=== PATIENT | male | born 1960 | race Caucasian/White ===

== ENCOUNTER 2019-07-19 05:34 | Outpatient (CLI) | payer OTHER ==
[~2019-07-19] VITALS: Ht 185 cm; Wt 131.8 kg
[2019-07-19] MEDS ORDERED: CITA20TA9 PO (14:00)
== END 2019-07-19 14:04 | disposition home or self-care (01) ==
LOC: PREOP 05:34
PROVIDERS: ATTEND Surgery
DX: Z01.818 Encounter for other preprocedural examination (principal)

== ENCOUNTER 2019-07-26 12:28 | Day surgery (SDC) | payer OTHER ==
[~2019-07-26] VITALS: Ht 185 cm; Wt 131.8 kg
[~2019-07-26 12:28] MED LIST: CITA20TA9 PO
[2019-07-26] MEDS ORDERED: LACTATED RINGERS 1,000 ML IV STA (12:36)
[2019-07-26] MEDS ORDERED: LACTATED RINGERS 1,000 ML IV ONE (12:38)
[2019-07-26 12:50] VITALS: BP 118/86
[2019-07-26] MEDS ORDERED: PROPOFOL INJECTION 50 ML IV ONE (12:58)
[2019-07-26] MEDS ORDERED: MIDAZOLAM 2 MG/2 ML (VERSED) VIAL ONE (12:58)
--- NOTE | 2019-07-26 13:12 | Progress Note-Pre Operative ---
Pre-Operative Progress Note H&P Reviewed The H&P was reviewed, patient examined and no changes noted. Date Seen by Provider: Jul 26, 2019 Time Seen by Provider: 13:11 Date H&P Reviewed: Jul 26, 2019 Time H&P Reviewed: 13:11 Pre-Operative Diagnosis: history of polyps, family hx colon cancer BHANU CHRIS DO Jul 26, 2019 13:12
[2019-07-26 13:35] VITALS: BP 132/86
[2019-07-26 13:40] VITALS: BP 134/67
[2019-07-26 13:45] VITALS: BP 123/60
--- NOTE | 2019-07-26 13:45 | Progress Note-Post Operative ---
Post-Operative Progess Note Surgeon (s)/Oil Rig Driller (s) Surgeon BHANU CHRIS DO Oil Rig Driller: na Pre-Operative Diagnosis history of polyps, family hx colon cancer Post-Operative Diagnosis diverticulosis Procedure & Operative Findings Date of Procedure 07/26/19 Procedure Performed/Findings colonoscopy Anesthesia Type per smoking tobacco packing machine hand Estimated Blood Loss Estimated blood loss (mL): none Specimens/Packing Specimens Removed na BHANU CHRIS DO Jul 26, 2019 13:45
--- NOTE | 2019-07-26 13:46 | Discharge Inst-Simple/Standard ---
Discharge Inst-Standard Patient Instructions/Follow Up Plan of Care/Instructions/FU: Repeat colonoscopy in 5 years, any issues before that be seen at that time. Activity as Tolerated: Yes Discharge Diet: Regular Diet (high fiber) BHANU CHRIS DO Jul 26, 2019 13:46
[2019-07-26 13:50] VITALS: BP 123/60
[2019-07-26 14:25] VITALS: BP 132/68
--- NOTE | 2019-07-26 15:54 | Anesthesia-General Post-Op ---
MAC Patient Condition Mental Status/LOC: Same as Preop Cardiovascular: Satisfactory Nausea/Vomiting: Absent Respiratory: Satisfactory Pain: Controlled Complications: Absent Post Op Complications Complications None Follow Up Care/Instructions Patient Instructions None needed. Anesthesiology Discharge Order Discharge Order Patient is doing well, no complaints, stable vital signs, no apparent adverse anesthesia problems. No complications reported per nursing. KONSTANTIN FLORES CRNA Jul 26, 2019 15:54
--- NOTE | 2019-07-26 21:07 | OPERATIVE REPORT ---
DATE OF SERVICE: 07/26/2019 PREOPERATIVE DIAGNOSES: History of polyps, family history of colon cancer. POSTOPERATIVE DIAGNOSIS: Diverticulosis. PROCEDURE: Colonoscopy. SURGEON: Bhanu Kramer DO ANESTHESIA: Per CERAMICS TECHNICIAN. ESTIMATED BLOOD LOSS: None. COMPLICATIONS: None. INDICATIONS: The patient is a 58-year-old male needing screening colonoscopy. He understands risks and benefits of procedure and wished to proceed with procedure. Consent was signed in the chart. DESCRIPTION OF PROCEDURE: The patient was taken to the endoscopy suite, placed in left lateral recumbent position. Timeout was performed. Digital rectal exam was performed. There were no palpable polyps, masses or ulcerations. Scope was inserted in the rectum, advanced all the way to cecum with minimal difficulty. Prep was adequate with irrigation and suction. Scope was then slowly retracted back. There were no polyps, masses or ulcerations within the cecum, ascending, transverse and descending colon. Into the sigmoid colon, moderate amount of diverticulosis present. No polyps, masses or ulcerations. Once in the rectum, scope was also retroflexed noting no other pathology. Scope was returned to its normal position, slowly withdrawn until completely removed. The patient tolerated procedure well without any complications, taken to recovery room in stable condition. RECOMMENDATIONS: The patient will need repeat colonoscopy in 5 years due to family history of colon cancer and because of history of polyps. If he has any issues before that, he should be reevaluated at that time. Job ID: [id number] DocumentID: [id number] Dictated Date: 07/26/2019 13:48:55 Switchboard Mechanic Date: 07/26/2019 21:06:19 Dictated By: BHANU KRAMER DO
== END 2019-07-26 14:40 ==
LOC: ENDO 12:28
PROVIDERS: ATTEND Surgery
DX: Z12.11 Encounter for screening for malignant neoplasm of colon (principal); K57.30 Diverticulosis of large intestine without perforation or abscess without bleeding; K42.9 Umbilical hernia without obstruction or gangrene; E66.9 Obesity, unspecified; Z68.38 Body mass index [BMI] 38.0-38.9, adult; Z90.49 Acquired absence of other specified parts of digestive tract; Z80.0 Family history of malignant neoplasm of digestive organs

== ENCOUNTER → 2019-11-10 | Outpatient (CLI) | payer OTHER | LOC: CARD 11:12 | PROVIDERS: ATTEND Internal Medicine | DX: I07.1 Rheumatic tricuspid insufficiency (principal); I51.7 Cardiomegaly; R79.89 Other specified abnormal findings of blood chemistry | CPT/HCPCS: 93306 ==

== ENCOUNTER 2019-12-08 11:46 | Outpatient (RCR) | payer OTHER ==
[2020-01-25] MEDS ORDERED: APIX5TAB PO (10:01)
[2020-01-25] MEDS ORDERED: ASCO500C17 PO (10:01)
[2020-01-25] MEDS ORDERED: AMIO200T4 PO (10:46)
== END 2020-03-07 | disposition home or self-care (01) ==
LOC: CARD 11:46
PROVIDERS: ATTEND Internal Medicine Cardiovascular Disease
DX: I48.0 Paroxysmal atrial fibrillation (principal); I49.3 Ventricular premature depolarization; E66.9 Obesity, unspecified

== ENCOUNTER → 2020-01-09 | Outpatient (CLI) | payer OTHER | LOC: LABNPT 07:09 | PROVIDERS: ATTEND Internal Medicine Cardiovascular Disease | DX: Z01.818 Encounter for other preprocedural examination (principal) ==

== ENCOUNTER → 2020-01-25 | Day surgery (SDC) | payer OTHER ==
[~2020-01-25] VITALS: Ht 185.4 cm; Wt 135.2 kg
[2020-01-25] VITALS (8 sets, daily range): BP systolic 113–148; BP diastolic 70–90
[~2020-01-25] MED LIST changes: +AMIO200T4 PO; +AMIODARONE FOR BOLUS 150 MG in D5W 100 ML IVPB 100 ML IV ONE; +APIX5TAB PO; +ASCO500C17 PO; +LIDOCAINE 2% VISCOUS 15 ML UDC ONE; +MIDAZOLAM 5 MG/5 ML (VERSED) VIAL ONE; +NS IV 1000 ML 1,000 ML IV SCH; +NS IV 1000 ML 1,000 ML ONE; +proPOfol 200 MG/20 ML (DIPRIVAN) VIAL IV ONE
--- OUTSIDE RECORDS SUMMARY | 2020-01-25 08:21 | XMS REPORT | Continuity of Care Document ---
Author Organization Unknown Address Unknown Phone Unavailable Allergies Active Description Code Type Severity Reaction Onset Reported/Identified Relationship to Patient Clinical Status Yes No Known Drug Allergies [id number] Drug Allergy Unknown N/A 07/19/2019 Medications There is no data. Problems Date Dx Coded Attending Type Code Diagnosis Diagnosed By 07/19/2019 BHANU CHRIS DO Ot Z01.818 ENCOUNTER FOR OTHER PREPROCEDURAL EXAMIN 07/21/2019 BHANU CHRIS DO Ot Z01.818 ENCOUNTER FOR OTHER PREPROCEDURAL EXAMIN 07/26/2019 BHANU CHRIS DO Ot E66. 9 OBESITY, UNSPECIFIED 07/26/2019 BHANU CHRIS DO Ot K42. 9 UMBILICAL HERNIA WITHOUT OBSTRUCTION OR 07/26/2019 BHANU CHRIS DO Ot K57. 30 DVRTCLOS OF LG INT W/O PERFORATION OR AB 07/26/2019 BHANU CHRIS DO Ot Z12. 11 ENCOUNTER FOR SCREENING FOR MALIGNANT NE 07/26/2019 BHANU CHRIS DO Ot Z68. 38 BODY MASS INDEX (BMI) 38.0-38.9, ADULT 07/26/2019 BHANU CHRIS DO Ot Z80. 0 FAMILY HISTORY OF MALIGNANT NEOPLASM OF 07/26/2019 BHANU CHRIS DO Ot Z90. 49 ACQUIRED ABSENCE OF OTHER SPECIFIED PART 07/29/2019 BHANU CHRIS DO Ot E66. 9 OBESITY, UNSPECIFIED 07/29/2019 BHANU CHRIS DO Ot K42. 9 UMBILICAL HERNIA WITHOUT OBSTRUCTION OR 07/29/2019 BHANU CHRIS DO Ot K57. 30 DVRTCLOS OF LG INT W/O PERFORATION OR AB 07/29/2019 BHANU CHRIS DO Ot Z12. 11 ENCOUNTER FOR SCREENING FOR MALIGNANT NE 07/29/2019 BHANU CHRIS DO Ot Z68. 38 BODY MASS INDEX (BMI) 38.0-38.9, ADULT 07/29/2019 BHANU CHRIS DO Ot Z80. 0 FAMILY HISTORY OF MALIGNANT NEOPLASM OF 07/29/2019 CHRIS BHANU Miles Ot Z90. 49 ACQUIRED ABSENCE OF OTHER SPECIFIED PART 11/14/2019 LETHA MARTINEZ, SHARON Walden Ot I07 .1 RHEUMATIC TRICUSPID INSUFFICIENCY 11/14/2019 LETHA MARTINEZ, SHARON Walden Ot I51 .7 CARDIOMEGALY 11/14/2019 LETHA MARTINEZ, SHARON Walden Ot R79.89 OTHER SPECIFIED ABNORMAL FINDINGS OF BLO 11/14/2019 SHARON MONAE MD Ot I07 .1 RHEUMATIC TRICUSPID INSUFFICIENCY 11/14/2019 LETHA MARTINEZ, SHARON Walden Ot I51 .7 CARDIOMEGALY 11/14/2019 LETHA MARTINEZ, SHARON Walden Ot R79.89 OTHER SPECIFIED ABNORMAL FINDINGS OF BLO 11/15/2019 SHARON MONAE MD Ot I07 .1 RHEUMATIC TRICUSPID INSUFFICIENCY 11/15/2019 SHARON MONAE MD, Ot I51 .7 CARDIOMEGALY 11/15/2019 SHARON MONAE MD Ot R79.89 OTHER SPECIFIED ABNORMAL FINDINGS OF BLO 01/13/2020 ZACHARY MARTINEZ, ZAYNAB Figueroa Ot Z01.818 ENCOUNTER FOR OTHER PREPROCEDURAL EXAMIN Procedures There is no data. Results Test Result Range LIPID PANEL - 01/17/19 11:12 CHOLESTEROL, TOTAL 140 mg/dL <200 HDL CHOLESTEROL 39 mg/dL >40 TRIGLYCERIDES 148 mg/dL <150 LDL-CHOLESTEROL 76 mg/dL (calc) NRG CHOL/HDLC RATIO 3.6 (calc) <5.0 NON HDL CHOLESTEROL 101 mg/dL (calc) <13 0 CBC - 06/17/19 11:08 WHITE BLOOD CELL COUNT 15.0 Thousand/uL 3.8-10.8 RED BLOOD CELL COUNT 5.68 Million/uL 4.2 0-5.80 HEMOGLOBIN 18.0 g/dL 13.2-17.1 HEMATOCRIT 52.2 % 38.5-50.0 MCV 91.9 fL 80.0-100.0 MCH 31.7 pg 27.0-33.0 MCHC 34.5 g/dL 32.0-36.0 RDW 12.8 % 11.0-15.0 PLATELET COUNT 209 Thousand/uL 140-400 MPV 11.1 fL 7.5-12.5 ABSOLUTE NEUTROPHILS 11102 cells/uL 1500 -7800 ABSOLUTE LYMPHOCYTES 2445 cells/uL 850-3 900 ABSOLUTE MONOCYTES 1425 cells/uL 200-950 ABSOLUTE EOSINOPHILS 15 cells/uL 15-500 ABSOLUTE BASOPHILS 45 cells/uL 0-200 NEUTROPHILS 73.8 % NRG LYMPHOCYTES 16.3 % NRG MONOCYTES 9.5 % NRG EOSINOPHILS 0.1 % NRG BASOPHILS 0.3 % NRG Encounters ACCT No. Visit Date/Time Discharge Status Pt. Type Provider Facility Loc./Unit Complaint [id number] 06/20/2019 13:40:00 06/20/2019 23:59: 59 CLS Out[facility] [id number] 06/17/2019 09:40:00 Document Registration [id number] 01/17/2019 10:40:00 Document Registration [id number] 01/18/2020 10:30:00 23:59:59 CLS Preadmit ZAYNAB SHARMA MD [facility] CATH AFIB,SOB [id number] 01/09/2020 07:09:00 23:59:59 CLS Outpatient ZAYNAB SHARMA MD [facility] LABNPT [id number] 12/08/2019 11:46:00 23:59:59 CLS Outpatient ZAYNAB SHARMA MD [facility] CARD PAROXYSMAL AFIB [id number] 11/10/2019 11:12:00 23:59:59 CLS Outpatient SHARON MONAE MD [facility] CARD ELEVATED BNP [id number] 07/26/2019 12:28:00 019 14:40:00 DIS Outpatient BHANU CHRIS DO [facility] ENDO SCREENING/HX POLYPS [id number] 07/19/2019 05:34:00 14:04:00 DIS Outpatient BHANU CHRIS DO [facility] PREOP COLONOSCOPY
[2020-01-25 09:30] LABS: BILIRUBIN,URINE NEGATIVE (NEGATIVE); CLARITY,URINE CLEAR; COLOR,URINE YELLOW; GLUCOSE, URINE (UA) NEGATIVE (NEGATIVE); KETONES,URINE NEGATIVE (NEGATIVE); LEUKOCYTE ESTERASE ,URINE NEGATIVE (NEGATIVE); NITRITE,URINE NEGATIVE (NEGATIVE); PH,URINE 5.5 (5-9); PROTEIN,URINE NEGATIVE (NEGATIVE)
[2020-01-25 09:31] LABS: HEMOGLOBIN 16.7 G/DL (13.3-17.7); MEAN PLATELET VOLUME 9.8 FL (7.4-10.4); RED CELL DISTRIBUTION WIDTH 13.4 % (10.0-14.5); WHITE BLOOD COUNT 7.1 10^3/uL (4.3-11.0)
--- NOTE | 2020-01-25 09:38 | Diagnostic Imaging Report ---
INDICATION: Preop for transesophageal echo. Time of exam: 9:32 AM Heart size is normal. Lungs are clear. The pulmonary vascularity is normal. No infiltrates are detected. There is no effusion or pneumothorax. IMPRESSION: No acute cardiopulmonary process is detected. Dictated by: Dictated on workstation # [id number]
[2020-01-25 09:42] LABS: INR 0.9 (0.8-1.4); PROTHROMBIN TIME PATIENT 12.8 SEC (12.2-14.7)
--- NOTE | 2020-01-25 09:42 | Cardiac Procedure Note-CS/ASA ---
Pre-Procedure Note Pre-Op Procedure Note H&P Reviewed The H&P was reviewed, patient examined and no changes noted. Date H&P Reviewed: Jan 25, 2020 Time H&P Reviewed: 09:41 Conscious Sedation Pre-Proced Time 09:41 ASA Score 3 For ASA 3 and 4: Consider anesthesia and medical clearance. Also, for patients with a history of failed moderate sedation consider anesthesia. Airway Lungs Heart ASA score ASA 1: a normal healthy patient ASA 2: a patient with a mild systemic disease (mid diabetes, controlled hypertension, obesity x ASA 3: a patient with a severe systemic disease that limits activity (angina, COPD, prior Myocardial infarction) ASA 4: a patient with an incapacitating disease that is a constant threat to life (CHF, renal failure) ASA 5: a moribund patient not expected to survive 24 hrs. (ruptured aneurysm) ASA 6: a declared brain- patient whose organs are being harvested. For emergent operations, add the letter E after the classification Mallampati Classification Grade 3 Sedation Plan Analgesia, Amnesia, Plan communicated to team members, Discussed options with patient/fam, Discussed risks with patient/fam The patient is an appropriate candidate to undergo the planned procedure, sedation, and anesthesia. The patient immediately re-assessed prior to indication. ZAYNAB SHARMA MD Jan 25, 2020 09:42
[2020-01-25 09:51] LABS: RBC,URINE RARE /HPF
[2020-01-25 09:52] LABS: ALANINE AMINOTRANSFERASE 69 U/L (0-55); ALKALINE PHOSPHATASE 68 U/L (40-136); BACTERIA,URINE TRACE /HPF; BILIRUBIN,TOTAL 0.8 MG/DL (0.1-1.0); BUN/CREATININE RATIO 17; CALCIUM 9.4 MG/DL (8.5-10.1); CARBON DIOXIDE 22 MMOL/L (21-32); CHLORIDE 106 MMOL/L (98-107); CHOLESTEROL 136 MG/DL (< 200); CREATININE SERUM 0.81 MG/DL (0.60-1.30); GFR ESTIMATED > 60; GLUCOSE 117 MG/DL (70-105); HDL CHOLESTEROL 34 MG/DL (40-60); POTASSIUM 4.4 MMOL/L (3.6-5.0); SODIUM 139 MMOL/L (135-145); SQUAMOUS EPITHELIAL CELL,UR RARE /HPF; TRIGLYCERIDES 136 MG/DL (<150); VLDL CHOLESTEROL 27 MG/DL (5-40)
--- NOTE | 2020-01-25 10:19 | NUR ---
SPOKE WITH THE PT AND HIS , ALSO CALLED [facility] TO COMPLETE THE MED REC 12-30-2019 CELEXA 20MG #30/30DS 01-04-2020 ELIQUIS 5MG #60/30DS ON 01-04-2020 [facility] ALSO FILLED METOPROLOL ER 25MG #30 HOWEVER WHEN I SPOKE WITH THE PATIENTS SHE INDICATED THAT THE PT WAS TO ONLY TAKE METOPROLOL FOR 30 DAYS AND THEN WAS TO STOP. OTC MEDS: VIT C
--- NOTE | 2020-01-25 10:38 | Cardioversion ---
Cardioversion PROCEDURE PHYSICIAN: Zaynab Boyd DATE OF PROCEDURE: 01/25/20 DIRECT EXTERNAL ELECTRICAL CARDIOVERSION: Indications: Atrial Fibrillation with rapid ventricular rate Preoperative diagnoses: Atrial Fibrillation with rapid ventricular rate Postoperative diagnosis: Sinus rhythm, Successful Electrical Cardioversion History: Anesthesia: By Anesthesia services Complications: None Specimen: None Contrast: 0 Flouroscopy: none Procedure Details: The patient was brought the fish hatchery laborer after informed consent was taken, all the risks and complications were explained including the risk of stroke. Electrical cardioversion was carried out with anesthesia support with propofol. 120 then 200 joules of synchronized shock was delivered through external patches which promptly restored sinus rhythm. The patient tolerated the procedure well. Conclusions: Successful electrical cardioversion terminating atrial fibrillation Final Diagnosis: Paroxysmal atrial fibrillation Hypertension Hyperlipidemia Palpitation ZAYNAB BOYD MD Jan 25, 2020 10:38
--- NOTE | 2020-01-25 11:41 | Anesthesia-General Post-Op ---
MAC Patient Condition Mental Status/LOC: Same as Preop Cardiovascular: Satisfactory Nausea/Vomiting: Absent Respiratory: Satisfactory Pain: Controlled Complications: Absent Post Op Complications Complications None Follow Up Care/Instructions Patient Instructions None needed. Anesthesiology Discharge Order Discharge Order Patient is doing well, no complaints, stable vital signs, no apparent adverse anesthesia problems. No complications reported per nursing. ABIODUN MICHAEL CRNA Jan 25, 2020 11:41
== END | disposition home or self-care (01) ==
LOC: CATH 08:15
PROVIDERS: ATTEND Internal Medicine Cardiovascular Disease
DX: I48.0 Paroxysmal atrial fibrillation (principal); I10 Essential (primary) hypertension; E78.5 Hyperlipidemia, unspecified; E66.9 Obesity, unspecified; F32.9 Major depressive disorder, single episode, unspecified; I07.1 Rheumatic tricuspid insufficiency; Z68.39 Body mass index [BMI] 39.0-39.9, adult; Z90.49 Acquired absence of other specified parts of digestive tract; Z96.649 Presence of unspecified artificial hip joint; Z79.01 Long term (current) use of anticoagulants
CPT/HCPCS: 36415; 71045; 80053; 80061; 81000; 85027; 85610; 85730; 87081; 92960; 93005; 93312; 93320; 93325

== ENCOUNTER 2020-03-06 15:46 | Outpatient (CLI) | payer OTHER ==
[~2020-03-06 15:46] MED LIST changes: -AMIODARONE FOR BOLUS 150 MG in D5W 100 ML IVPB 100 ML IV ONE; -LIDOCAINE 2% VISCOUS 15 ML UDC ONE; -MIDAZOLAM 5 MG/5 ML (VERSED) VIAL ONE; -NS IV 1000 ML 1,000 ML IV SCH; -NS IV 1000 ML 1,000 ML ONE; -proPOfol 200 MG/20 ML (DIPRIVAN) VIAL IV ONE
== END 2020-03-06 16:13 | disposition home or self-care (01) ==
LOC: SLEEP 15:46
PROVIDERS: ATTEND Internal Medicine Cardiovascular Disease
DX: G47.33 Obstructive sleep apnea (adult) (pediatric) (principal); I49.9 Cardiac arrhythmia, unspecified; I48.0 Paroxysmal atrial fibrillation; R10.9 Unspecified abdominal pain; R06.09 Other forms of dyspnea

== ENCOUNTER → 2021-05-22 | Outpatient (CLI) | payer OTHER ==
[~2021-05-22] MED LIST changes: -AMIO200T4 PO; +AMIO200T6 PO
== END ==
LOC: CARD 15:00
PROVIDERS: ATTEND Internal Medicine Cardiovascular Disease
DX: I34.0 Nonrheumatic mitral (valve) insufficiency (principal); I11.9 Hypertensive heart disease without heart failure; I25.10 Atherosclerotic heart disease of native coronary artery without angina pectoris
CPT/HCPCS: 93306